=== PATIENT | male | born 1945 | race Caucasian/White ===

== ENCOUNTER 2019-05-15 04:01 | Outpatient (CLI) | payer MEDICARE, MEDICAID | END 2019-05-15 23:59 | disposition home or self-care (01) | LOC: DIABETIC 04:01 | PROVIDERS: ATTEND Specialist | DX: E11.69 Type 2 diabetes mellitus with other specified complication (principal) | CPT/HCPCS: G0108 ==

== ENCOUNTER 2019-10-26 09:10 | Observation (INO) | payer MEDICARE, MEDICAID ==
[2019-10-24 14:15] VITALS: BP 153/68
[~2019-10-26] VITALS: Ht 182.9 cm; Wt 95.1 kg
[2019-10-26] VITALS (11 sets, daily range): BP systolic 113–192; BP diastolic 61–90
[~2019-10-26 09:10] MED LIST: ALBU2.5V10 INH; ALLO300T2 PO; ASPI-611 PO; ATEN50TA PO; ATOR-2 PO; CLOP75TA15 PO; COLC0.6T69 PO; DABI150C PO; INSU100V9 SQ; ISOS30TA6 PO; LEVO200T8 PO; LISI-600 PO; METF1000 PO; TEST75GE TOP; TIOT4MIS5 INH
[2019-10-26] MEDS ORDERED: diphenhydrAMINE 25mg capsule PO PRN (09:35)
[2019-10-26] MEDS ORDERED: normal saline 1,000 ML IV SCH (09:35)
[2019-10-26] MEDS ORDERED: LORazepam 0.5 MG tablet PO PRN (09:35)
[2019-10-26] MEDS ORDERED: CLOP75TA15 PO (09:55)
[2019-10-26] MEDS ORDERED: METF-438 PO (09:55)
[2019-10-26] MEDS ORDERED: DABI75CA3 PO (09:55)
[2019-10-26] MEDS ORDERED: ATOR80TA PO (09:55)
[2019-10-26 10:31] LABS: BASOPHILS # (AUTO) 0.1 X10'3 (0-0.2); BASOPHILS % (AUTO) 1.2 % (0-1); EOSINOPHILS # (AUTO) 0.3 X10'3 (0-0.9); EOSINOPHILS % (AUTO) 5.8 % (0-6); HEMATOCRIT 40.6 % (42.0-52.0); HEMOGLOBIN 13.7 g/dl (14.0-17.9); LYMPHOCYTES # (AUTO) 1.4 X10'3 (1.1-4.8); LYMPHOCYTES % (AUTO) 22.8 % (21-51); MEAN CORPUSCULAR HEMOGLOBIN 30.4 PG (27.0-31.0); MEAN CORPUSCULAR HGB CONC 33.7 g/dL (33.0-36.5); MEAN CORPUSCULAR VOLUME 90.2 FL (78-98); MEAN PLATELET VOLUME 8.7 FL (7.4-10.4); MONOCYTES # (AUTO) 0.6 X10'3 (0-0.9); MONOCYTES % (AUTO) 9.7 % (2-12); NEUTROPHILS # (AUTO) 3.6 X10'3 (1.8-7.7); NEUTROPHILS % (AUTO) 60.5 % (42-75); PLATELET COUNT 193 X10'3 (140-440); WHITE BLOOD COUNT 5.9 X10'3 (4.5-11.0)
[2019-10-26 10:41] LABS: ALBUMIN 3.3 G/DL (3.4-5.0); ANION GAP 9 (8-16); BLOOD UREA NITROGEN 11 MG/DL (7-18); BUN/CREATININE RATIO 10.3 (5.4-32.0); CALCIUM 9.2 MG/DL (8.5-10.1); CHLORIDE 105 MMOL/L (99-107); CREATININE 1.07 MG/DL (0.60-1.10); GLUCOSE 130 MG/DL (70-104); POTASSIUM 3.9 MMOL/L (3.5-5.1); SODIUM 140 MMOL/L (135-145); TOTAL CARBON DIOXIDE 25.9 MMOL/L (24-32); eGFR 67 ML/MIN
[2019-10-26 10:44] LABS: PARTIAL THROMBOPLASTIN TIME 30 SECONDS (22-32)
[2019-10-26] MEDS ORDERED: fentaNYL/PF 50MCG/1 ML 2ML syringe ONE (11:13)
[2019-10-26] MEDS ORDERED: midazolam 2 mg/2 ml injection ONE (11:13)
[2019-10-26] MEDS ORDERED: verapamil 2.5 mg/ml inj IV ONE (11:13)
[2019-10-26] MEDS ORDERED: heparin 1,000unit/ml 10ml vial 10 ML ONE ×2 (11:14→13:07)
[2019-10-26] MEDS ORDERED: nitroGLYCERIN-Tridil 50MG/D5W 250 ML IV ONE (11:14)
[2019-10-26] MEDS ORDERED: iohexol 350 MG/1 ML 200ml bottle ONE (11:14)
[2019-10-26] MEDS ORDERED: LIDOcaine 1% (10mg/ml)w/preservative injection 20ml MDV ONE (11:14)
[2019-10-26] MEDS ORDERED: heparin 1,000 UNITS/NS 500ml 500 ML ONE (12:13)
[2019-10-26] MEDS ORDERED: iohexol 350MG/ML 100ml bottle IV ONE ×2 (13:08→13:34)
[2019-10-26] MEDS ORDERED: clopidogrel 300mg tablet ONE (13:58)
[2019-10-26] MEDS ORDERED: heparin 25,000 UNIT/250ml bag 250 ML IV ONE (14:04)
--- NOTE | 2019-10-26 14:15 | NUR ---
Angioseal inplace, hematoma developed, pressure held by kay Holliday from entry level lab technician. edges marked. will continue to monitor Addendum: 10/26/19 at 1830 by Luly Zamora RN Correction time of angioseal placement was 1615 not 1830
--- NOTE | 2019-10-26 14:15 | NUR ---
plavix given at bedside by photonic laboratory technician nurse TERRA Mathews
--- NOTE | 2019-10-26 14:20 | NUR ---
Hematoma to rt groin has increased in size. pressure held for 15 min. MD Sage at bedside. New orders given, femstop ordered. Addendum: 10/26/19 at 1833 by Luly Zamora RN Correction above note is incorrectly timed. Event was 1620 not 183
--- NOTE | 2019-10-26 14:51 | NUR ---
paged waiting for call back
[2019-10-26] MEDS ORDERED: CLOPIDOGREL BISULFATE 300MG TAB PO ONE (14:55)
[2019-10-26] MEDS ORDERED: OXAZEpam 15mg capsule PO PRN (15:00)
[2019-10-26] MEDS ORDERED: acetaminophen 325mg tablet PO PRN (15:00)
[2019-10-26] MEDS ORDERED: proCHLORperazine 10 MG/2 ml inj IV PRN (15:00)
[2019-10-26] MEDS ORDERED: HYDROcodone/acetaminophen 10/325mg tab PO PRN ×2 (15:00)
[2019-10-26] MEDS ORDERED: magnesium hydroxide 30ml (MOM) UD suspension PO PRN (15:00)
[2019-10-26] MEDS ORDERED: aspirin 81mg tab.chew PO NR (15:00)
[2019-10-26] MEDS ORDERED: cyclobenzaprine 10mg tablet PO PRN (15:00)
--- NOTE | 2019-10-26 15:00 | NUR ---
Reported change on EKG. New medications ordered.
[2019-10-26] MEDS ORDERED: potassium Cl 20 mEq SR tablet PO STA (15:01)
[2019-10-26] MEDS ORDERED: magnesium 2GM in 50ml NS 50 ML IV ONE (15:05)
--- NOTE | 2019-10-26 18:05 | NUR ---
Problems reprioritized. Patient report given, questions answered & plan of care reviewed with TERRA Hernandez.
[2019-10-26] MEDS ORDERED: ipratropium 0.5 MG/2.5ML nebule IH PRN (18:50)
--- NOTE | 2019-10-26 19:30 | NUR ---
Problems reprioritized. Patient report given, questions answered & plan of care reviewed with TERRA Babin, pt's VSS, pt is in stable condition, pt will be transferred to Room#309.
[2019-10-26] MEDS ORDERED: docusate sod 100mg capsule PO SCH (20:00)
[2019-10-26] MEDS ORDERED: atorvastatin 20mg tablet PO SCH (21:00)
[2019-10-26] MEDS ORDERED: insulin glargine (Lantus) pen - multi-dose SQ SCH (21:00)
[2019-10-26] MEDS: normal saline 1,000 ML IV SCH (22:32)
[2019-10-27] MEDS: normal saline 1,000 ML IV SCH (01:00)
[2019-10-27 02:47] LABS: BASOPHILS # (AUTO) 0.1 X10'3 (0-0.2); BASOPHILS % (AUTO) 0.7 % (0-1); EOSINOPHILS # (AUTO) 0.4 X10'3 (0-0.9); EOSINOPHILS % (AUTO) 3.8 % (0-6); HEMATOCRIT 37.1 % (42.0-52.0); HEMOGLOBIN 12.6 g/dl (14.0-17.9); LYMPHOCYTES # (AUTO) 1.6 X10'3 (1.1-4.8); LYMPHOCYTES % (AUTO) 16.9 % (21-51); MEAN CORPUSCULAR HEMOGLOBIN 30.4 PG (27.0-31.0); MEAN CORPUSCULAR HGB CONC 33.9 g/dL (33.0-36.5); MEAN CORPUSCULAR VOLUME 89.7 FL (78-98); MEAN PLATELET VOLUME 8.9 FL (7.4-10.4); MONOCYTES # (AUTO) 0.8 X10'3 (0-0.9); MONOCYTES % (AUTO) 8.9 % (2-12); NEUTROPHILS # (AUTO) 6.6 X10'3 (1.8-7.7); NEUTROPHILS % (AUTO) 69.7 % (42-75); PLATELET COUNT 193 X10'3 (140-440); RED BLOOD COUNT 4.14 X10'6 (4.70-6.10); RED CELL DISTRIBUTION WIDTH 17.1 % (11.5-14.5); WHITE BLOOD COUNT 9.5 X10'3 (4.5-11.0)
[2019-10-27 02:55] LABS: ALBUMIN 3.2 G/DL (3.4-5.0); ANION GAP 6 (8-16); BLOOD UREA NITROGEN 12 MG/DL (7-18); BUN/CREATININE RATIO 11.2 (5.4-32.0); CALCIUM 8.9 MG/DL (8.5-10.1); CHLORIDE 106 MMOL/L (99-107); CHOLESTEROL 103 MG/DL (0-200); CREATININE 1.07 MG/DL (0.60-1.10); GLUCOSE 110 MG/DL (70-104); HDL CHOLESTEROL 34 MG/DL (35-60); LDL CHOLESTEROL 54 MG/DL (50-100); SODIUM 139 MMOL/L (135-145); TOTAL CARBON DIOXIDE 26.8 MMOL/L (24-32); TRIGLYCERIDES 85 MG/DL (20-135); eGFR 67 ML/MIN
[2019-10-27 03:06] VITALS: BP 171/102
--- NOTE | 2019-10-27 03:07 | NUR ---
pt hypertensive 171/102. pt irritable. r/t hospital policy of skin check. pt pulled out IV, refuse recheck BP. pt sitting at edge of bed, getting dressed refuse assistance. call staff Foul language. RN and charge educated pt regarding fall precaution, AMA. pt non redirectable at present.
--- NOTE | 2019-10-27 03:10 | NUR ---
Pt requested to speak with charge coordinator at this time. He expressed frustration with the 2 RN skin check performed. At time of the skin check 10/26/19 @ 2300, patient did not refuse the skin check and what we would be doing was explained to him. Explained to patient that the 2 RN skin check is a policy in our hospital as we are looking for any wounds/sores or areas of potential breakdown. Pt said he has had it with this place and he would be leaving even if he "had to walk home to [place]". At this time I educated him regarding AMA and signing the paper if he would be leaving. Patient said he wasn't signing any paper and requested all lines and wires to be d/c'd. I asked patient if he would be willing to wait until Dr. Sage rounded to d/c. Patient said he wanted to get dressed, call his and he would wait for [address] Sage to round. Patient removed his own IV. I left the room, the patient closed the door to get dressed.
--- NOTE | 2019-10-27 03:20 | NUR ---
I was in a patient's room when his door opened and patient, fully dressed, walked out and off the unit. Security called. I went to the lobby to check and see if patient was leaving. He was at the exit walking out. He said he called his and would wait outside for her to come. Security arrived. Patient adamant about leaving, said he couldn't stay any longer. Still refusing to sign AMA. Didn't understand why the hospital would do a 2 RN skin check and said he had never had one done anytime he stayed here. Explained our hospital's policy/procedure. Said he would call Dr. Sage's office later this morning. Patient said he had all of his belongings with him. Didn't want us to check on any discharge medications. ID band taken off. Primary RN notified Nursing Sup and Dr. Sage.
[2019-10-27] MEDS ORDERED: levoTHYROXINE 100mcg tablet PO SCH (08:00)
[2019-10-27] MEDS ORDERED: atenolol 50mg tablet PO SCH (08:00)
[2019-10-27] MEDS ORDERED: colchicine 0.6mg tablet PO SCH (08:00)
[2019-10-27] MEDS ORDERED: non-formulary drug (Aspirin (Aspir 81) 1 TAB) PO SCH (08:00)
[2019-10-27] MEDS ORDERED: lisinopril 20mg tablet PO SCH (08:00)
[2019-10-27] MEDS ORDERED: testosterone 5gm gel packet TD SCH (08:00)
[2019-10-27] MEDS ORDERED: isosorbide mononitrate 30mg tab.SR.24H PO SCH (08:00)
[2019-10-27] MEDS ORDERED: clopidogrel 75mg tablet PO SCH ×2 (08:00)
[2019-10-27] MEDS ORDERED: allopurinol 300 MG tablet PO SCH (08:00)
[2019-10-27] MEDS ORDERED: aspirin 325mg tablet PO SCH (08:30)
[2019-10-28] MEDS ORDERED: metFORMIN 500mg tablet PO SCH (20:00)
== END 2019-10-27 03:20 | disposition left against medical advice (07) ==
LOC: SSTAY O 09:10 → ED HOLD 18:06 → MED 3N 20:51
PROVIDERS: ADMIT Internal Medicine Cardiovascular Disease; ATTEND Internal Medicine Cardiovascular Disease
DX: I25.10 Atherosclerotic heart disease of native coronary artery without angina pectoris (principal); I10 Essential (primary) hypertension; E78.5 Hyperlipidemia, unspecified; E11.9 Type 2 diabetes mellitus without complications; J44.9 Chronic obstructive pulmonary disease, unspecified; F17.200 Nicotine dependence, unspecified, uncomplicated; Z95.1 Presence of aortocoronary bypass graft; Z79.899 Other long term (current) drug therapy
CPT/HCPCS: 33210; 36415; 80048; 80061; 82948; 85025; 85347; 85610; 85730; 93005; 94760; 96365; 96366; 96372; C1725; C1756; C1769; C1874; C9602; G0378; J1644; J2001; J2250; J3010; J3475; J7030; J7040; Q0163; Q9967; 99152; 99153; A4620; A6258; A6449; C1760; J1815; J3490

== ENCOUNTER 2021-11-06 14:21 | Outpatient (CLI) | payer MEDICARE, MEDICAID ==
[~2021-11-06 14:21] MED LIST changes: -ALBU2.5V10 INH; -ATOR-2 PO; +ATOR80TA PO; -COLC0.6T69 PO; +COLC0.6T72 PO; -DABI150C PO; +DABI75CA3 PO; -ISOS30TA6 PO; +ISOS30TA84 PO; -LISI-600 PO; +LISI20TA28 PO; +METF-438 PO; -METF1000 PO
[2021-11-06 14:57] LABS: ABG BASE EXCESS -0.6 mmol/L (-2.0-2.0); ABG HCO3 22.7 mmol/L (22.0-26.0); ABG OXYGEN SATURATION 96.3 % (94-97); ABG PCO2 (T) 33.8 mmHg (35.0-48.0); ABG PO2 (T) 83.3 mmHg (75.0-100.0); ALLEN'S TEST POSITIVE; FCOHb 0.9 % (0.0-3.9); FO2Hb 95.4 % (94-97); TOTAL HEMOGLOBIN 14.8 G/dl (14.0-18.0)
== END 2021-11-06 23:59 | disposition home or self-care (01) ==
LOC: LAB 14:21
PROVIDERS: ATTEND Physician Assistant
DX: J44.9 Chronic obstructive pulmonary disease, unspecified (principal)
CPT/HCPCS: 36600; 82803; 85018

== ENCOUNTER 2024-07-17 17:29 | Inpatient (IN) | payer MEDICARE, MEDICAID ==
[~2024-07-17] VITALS: Ht 182.9 cm; Wt 93.2 kg
[2024-07-17 18:15] LABS: BASOPHILS # (AUTO) 0.1 X10'3 (0-0.2); BASOPHILS % (AUTO) 0.8 % (0-1); EOSINOPHILS # (AUTO) 0.3 X10'3 (0-0.9); EOSINOPHILS % (AUTO) 2.4 % (0-6); HEMATOCRIT 41.7 % (42.0-52.0); HEMOGLOBIN 14.4 g/dl (14.0-17.9); LYMPHOCYTES # (AUTO) 1.5 X10'3 (1.1-4.8); LYMPHOCYTES % (AUTO) 14.4 % (21-51); MEAN CORPUSCULAR HEMOGLOBIN 32.1 PG (27.0-31.0); MEAN CORPUSCULAR HGB CONC 34.5 g/dL (33.0-36.5); MEAN CORPUSCULAR VOLUME 93.2 FL (78-98); MEAN PLATELET VOLUME 8.7 FL (7.4-10.4); MONOCYTES # (AUTO) 0.7 X10'3 (0-0.9); MONOCYTES % (AUTO) 6.4 % (2-12); PLATELET COUNT 190 X10'3 (140-440); RED BLOOD COUNT 4.47 X10'6 (4.70-6.10); RED CELL DISTRIBUTION WIDTH 16.3 % (11.5-14.5); WHITE BLOOD COUNT 10.5 X10'3 (4.5-11.0)
[2024-07-17] MEDS: normal saline 1000ml 1,000 ML IV ONE (18:21)
[2024-07-17 18:31] LABS: ALANINE AMINOTRANSFERASE 11 U/L (12-78); ALBUMIN 3.4 G/DL (3.4-5.0); ALBUMIN/GLOBULIN RATIO 0.9 (1.1-1.5); ALKALINE PHOSPHATASE 84 IU/L (46-116); ANION GAP 11 (8-16); ASPARTATE AMINO TRANSFERASE 10 U/L (10-37); BILIRUBIN,TOTAL 1.3 MG/DL (0.1-1.0); BLOOD UREA NITROGEN 11 MG/DL (7-18); BUN/CREATININE RATIO 8.3 (10.0-20.0); CALCIUM 9.2 MG/DL (8.5-10.1); CHLORIDE 102 MMOL/L (99-107); CREATININE 1.33 MG/DL (0.60-1.10); GLUCOSE 187 MG/DL (70-104); POTASSIUM 3.3 MMOL/L (3.5-5.1); SODIUM 138 MMOL/L (135-145); TOTAL CARBON DIOXIDE 24.6 MMOL/L (24-32); TOTAL PROTEIN 7.1 G/DL (6.4-8.2); eCRCL 49 ML/MIN; eGFR 52 ML/MIN
[2024-07-17 18:41] LABS: PRO BRAIN NATRIURETIC PEPTIDE 2441 PG/ML (0-450)
[2024-07-17] MEDS ORDERED: acetaminophen 325mg tablet PO PRN (21:25)
[2024-07-17] MEDS ORDERED: potassium Cl 20 mEq SR tablet PO PRN (21:25)
[2024-07-17] MEDS ORDERED: ondansetron/PF 4mg/2ml inj IV PRN (21:25)
[2024-07-17] MEDS ORDERED: mag hydrox/Alum hydrox/simeth 30ml oral suspension PO PRN (21:25)
[2024-07-17] MEDS ORDERED: magnesium hydroxide 30ml (MOM) UD suspension PO PRN (21:25)
[2024-07-17] MEDS ORDERED: magnesium sulf-water 4G/100mL 100 ML IV PRN (21:25)
[2024-07-17] MEDS ORDERED: potassium Cl 40MEQ/1/2NS 520ml 520 ML IV PRN (21:25)
[2024-07-17] MEDS ORDERED: magnesium Cl slow-release 64mg tablet PO PRN (21:25)
[2024-07-17] MEDS ORDERED: magnesium sulf-water 2g/50mL 50 ML IV PRN (21:25)
[2024-07-17] MEDS ORDERED: DEXTROSE 15 GM of carb/4 tabs (each vial/BOTTLE has 4 tablets) PO PRN ×2 (21:30)
[2024-07-17] MEDS ORDERED: glucagon, human recombinant 1mg kit SUBCUT PRN (21:30)
[2024-07-17] MEDS ORDERED: dextrose 50%-water 50ml dispensing syringe IV PRN ×2 (21:30)
[2024-07-17 21:52] LABS: HEMOGLOBIN A1C 6.7 % (4.5-6.2)
[2024-07-17] MEDS: potassium Cl 20 mEq SR tablet PO PRN (21:56)
[2024-07-17] MEDS: normal saline 1000ml 1,000 ML IV SCH (21:57)
[2024-07-17 22:47] LABS: THYROID STIMULATING HORMONE 94.12 ulU/ml (0.34-4.50)
[2024-07-17] MEDS ORDERED: ipratropium/albuterol 3ml nebule NEB SCH (23:00)
[2024-07-17 23:35] VITALS: PULSE 67; RESP 16; O2SAT 96
[2024-07-18] MEDS ORDERED: ipratropium/albuterol 3ml nebule NEB PRN
[2024-07-18 02:38] LABS: URINE AMPHETAMINE SCREEN NEGATIVE (Neg); URINE BARBITUATE SCREEN NEGATIVE (Neg); URINE BENZODIAZEPINES SCREEN NEGATIVE (Neg); URINE COCAINE SCREEN NEGATIVE (Neg); URINE METHADONE SCREEN NEGATIVE (Neg); URINE PHENCYCLIDINE SCREEN NEGATIVE (Neg)
[2024-07-18 02:39] LABS: URINE CANNABINOID SCREEN NEGATIVE (Neg); URINE OPIATE SCREEN NEGATIVE (Neg)
[2024-07-18 02:59] LABS: BASOPHILS # (AUTO) 0.1 X10'3 (0-0.2); EOSINOPHILS # (AUTO) 0.3 X10'3 (0-0.9); EOSINOPHILS % (AUTO) 3.9 % (0-6); HEMATOCRIT 37.3 % (42.0-52.0); HEMOGLOBIN 12.5 g/dl (14.0-17.9); LYMPHOCYTES # (AUTO) 1.5 X10'3 (1.1-4.8); LYMPHOCYTES % (AUTO) 21.5 % (21-51); MEAN CORPUSCULAR HEMOGLOBIN 31.1 PG (27.0-31.0); MEAN CORPUSCULAR HGB CONC 33.5 g/dL (33.0-36.5); MEAN CORPUSCULAR VOLUME 92.8 FL (78-98); MEAN PLATELET VOLUME 8.3 FL (7.4-10.4); MONOCYTES # (AUTO) 0.5 X10'3 (0-0.9); MONOCYTES % (AUTO) 7.7 % (2-12); NEUTROPHILS # (AUTO) 4.5 X10'3 (1.8-7.7); NEUTROPHILS % (AUTO) 65.9 % (42-75); PLATELET COUNT 196 X10'3 (140-440); RED BLOOD COUNT 4.02 X10'6 (4.70-6.10); RED CELL DISTRIBUTION WIDTH 15.9 % (11.5-14.5); WHITE BLOOD COUNT 6.8 X10'3 (4.5-11.0)
[2024-07-18 03:25] LABS: ALANINE AMINOTRANSFERASE 10 U/L (12-78); ALBUMIN 2.9 G/DL (3.4-5.0); ALBUMIN/GLOBULIN RATIO 0.8 (1.1-1.5); ALKALINE PHOSPHATASE 71 IU/L (46-116); ANION GAP 4 (8-16); ASPARTATE AMINO TRANSFERASE 14 U/L (10-37); BLOOD UREA NITROGEN 10 MG/DL (7-18); BUN/CREATININE RATIO 7.4 (10.0-20.0); CALCIUM 8.2 MG/DL (8.5-10.1); CHLORIDE 105 MMOL/L (99-107); CREATININE 1.35 MG/DL (0.60-1.10); GLUCOSE 119 MG/DL (70-104); MAGNESIUM 1.6 MG/DL (1.5-2.4); POTASSIUM 3.4 MMOL/L (3.5-5.1); SODIUM 138 MMOL/L (135-145); TOTAL CARBON DIOXIDE 28.9 MMOL/L (24-32); TOTAL PROTEIN 6.4 G/DL (6.4-8.2); eCRCL 48 ML/MIN; eGFR 51 ML/MIN
[2024-07-18 05:35] VITALS: PULSE 61
[2024-07-18 05:58] VITALS: BP 166/78; RESP 16; TEMP 97.4; O2SAT 99
[2024-07-18] MEDS ORDERED: INSULIN LISPRO 100 UNIT/ML INSULN.PEN MULTI-DOSE SQ SCH ×2 (07:00→09:00)
[2024-07-18] MEDS ORDERED: K and/or MAG REPLACEMENT MC SCH (08:00)
[2024-07-18] MEDS ORDERED: apixaban 2.5mg tablet PO SCH (08:00)
[2024-07-18] MEDS ORDERED: docusate sod 100mg capsule PO SCH (08:00)
== END 2024-07-18 05:58 | disposition left against medical advice (07) | DRG 312 ==
LOC: ER 17:29 → ED HOLD 19:30
PROVIDERS: ADMIT Student in an Organized Health Care Education/Training Program; ATTEND Student in an Organized Health Care Education/Training Program
DX: I95.1 Orthostatic hypotension (principal); I48.91 Unspecified atrial fibrillation; E11.9 Type 2 diabetes mellitus without complications; E78.5 Hyperlipidemia, unspecified; E03.9 Hypothyroidism, unspecified; J44.9 Chronic obstructive pulmonary disease, unspecified; M10.9 Gout, unspecified; I10 Essential (primary) hypertension; I25.10 Atherosclerotic heart disease of native coronary artery without angina pectoris; Z53.29 Procedure and treatment not carried out because of patient's decision for other reasons; Z88.8 Allergy status to other drugs, medicaments and biological substances
CPT/HCPCS: 36415; 71045; 80053; 80305; 83036; 83605; 83735; 83880; 84145; 84443; 84484; 85025; 87040; 93005; 94760; 99285; G0378; J1815; J7030

== ENCOUNTER 2024-10-07 07:10 | Observation (INO) | payer MEDICARE, MEDICAID ==
[2024-10-06 11:37] LABS: BASOPHILS # (AUTO) 0.1 X10'3 (0-0.2); BASOPHILS % (AUTO) 1.1 % (0-1); EOSINOPHILS # (AUTO) 0.3 X10'3 (0-0.9); EOSINOPHILS % (AUTO) 4.2 % (0-6); HEMATOCRIT 42.8 % (42.0-52.0); HEMOGLOBIN 14.8 g/dl (14.0-17.9); LYMPHOCYTES # (AUTO) 1.6 X10'3 (1.1-4.8); LYMPHOCYTES % (AUTO) 19.6 % (21-51); MEAN CORPUSCULAR HEMOGLOBIN 32.8 PG (27.0-31.0); MEAN CORPUSCULAR HGB CONC 34.6 g/dL (33.0-36.5); MEAN CORPUSCULAR VOLUME 94.9 FL (78-98); MEAN PLATELET VOLUME 8.1 FL (7.4-10.4); MONOCYTES # (AUTO) 0.7 X10'3 (0-0.9); MONOCYTES % (AUTO) 7.9 % (2-12); NEUTROPHILS # (AUTO) 5.6 X10'3 (1.8-7.7); NEUTROPHILS % (AUTO) 67.2 % (42-75); PLATELET COUNT 209 X10'3 (140-440); RED BLOOD COUNT 4.51 X10'6 (4.70-6.10); RED CELL DISTRIBUTION WIDTH 15.4 % (11.5-14.5); WHITE BLOOD COUNT 8.4 X10'3 (4.5-11.0)
[2024-10-06 11:55] LABS: APTT 28 SECONDS (22-32); PROTHROMBIN TIME 10.9 SECONDS (9.0-12.0)
[2024-10-06 12:08] LABS: ALBUMIN 3.6 G/DL (3.4-5.0); ANION GAP 9 (8-16); BLOOD UREA NITROGEN 10 MG/DL (7-18); BUN/CREATININE RATIO 6.4 (10.0-20.0); CALCIUM 8.9 MG/DL (8.5-10.1); CHLORIDE 100 MMOL/L (99-107); CREATININE 1.56 MG/DL (0.60-1.10); GLUCOSE 148 MG/DL (70-104); POTASSIUM 3.4 MMOL/L (3.5-5.1); SODIUM 139 MMOL/L (135-145); TOTAL CARBON DIOXIDE 30.5 MMOL/L (24-32); eGFR 43 ML/MIN
[~2024-10-07] VITALS: Ht 185.4 cm; Wt 102.6 kg
[2024-10-07] VITALS (15 sets, daily range): BP systolic 95–180; BP diastolic 46–118; PULSE 41–69; RESP 12–15; TEMP 98.2; O2SAT 94–99
[~2024-10-07 07:10] MED LIST changes: +ATOR-429 PO; -ATOR80TA PO
[2024-10-07] MEDS ORDERED: ATOR20TA66 PO (07:34)
[2024-10-07] MEDS ORDERED: LEVO75TA7 PO (07:36)
[2024-10-07] MEDS ORDERED: LISI40TA13 PO (07:37)
[2024-10-07] MEDS: diphenhydrAMINE 25mg capsule PO PRN (08:22)
[2024-10-07] MEDS: normal saline 1,000 ML IV SCH (08:22)
[2024-10-07] MEDS: LORazepam 0.5 MG tablet PO PRN (08:22)
[2024-10-07] MEDS ORDERED: heparin 1,000unit/ml 10ml vial 10 ML ONE (08:39)
[2024-10-07] MEDS ORDERED: fentaNYL/PF 50MCG/1 ML 2ML syringe ONE (08:39)
[2024-10-07] MEDS ORDERED: midazolam 1 mg/ML 2ml injection ONE (08:39)
[2024-10-07] MEDS ORDERED: LIDOcaine 1% 30ml preserv. free vial ONE (08:39)
[2024-10-07] MEDS ORDERED: iohexol 350 MG/ML 50ML vial IV ONE (08:39)
[2024-10-07] MEDS ORDERED: iohexol 350MG/ML 100ml bottle IV ONE ×2 (08:39→11:02)
[2024-10-07] MEDS ORDERED: nitroGLYCERIN 500mcg/5mL D5W 5 ML IV ONE (08:40)
[2024-10-07] MEDS: potassium Cl 20 mEq SR tablet PO STA (08:54)
[2024-10-07] MEDS: sodium bicarbonate 1meq/ml syr 150 ML in dextrose 5%-water 1,000 ML IV ONE (08:56)
[2024-10-07] MEDS ORDERED: LIDOcaine 1% (10mg/ml) 2ml vial ONE (09:49)
[2024-10-07] MEDS ORDERED: verapamil 2.5 mg/ml inj IV ONE (09:49)
[2024-10-07] MEDS: isosorbide mononitrate 30mg tab.SR.24H PO ONE (10:00)
[2024-10-07] MEDS: atenolol 50mg tablet PO ONE (10:12)
[2024-10-07] MEDS ORDERED: hydrALAZINE 20mg/ml inj. ONE ×2 (11:06→11:39)
[2024-10-07] MEDS ORDERED: HYDROcodone/acetaminophen 10/325mg tab PO PRN (12:20)
[2024-10-07] MEDS ORDERED: HYDROcodone/acetaminophen 5mg/325mg tablet PO PRN (12:20)
[2024-10-07] MEDS ORDERED: atropine 1 MG/1 ML vial IV ONE (12:35)
[2024-10-07] MEDS: atropine 0.1mg/ml 10ml syringe ONE (12:42)
[2024-10-07] MEDS: acetylcysteine 200 MG/ml 4ml vial PO PRN (12:44)
[2024-10-07] MEDS: albuterol 2.5 MG/3 ML nebule NEB PRN (15:23)
[2024-10-07] MEDS: acetylcysteine 200 MG/ml 4ml vial PO SCH (20:00)
[2024-10-07] MEDS: LORazepam 2 mg/ml vial IM ONE (22:47)
[2024-10-07] MEDS: LORazepam 2 mg/ml vial IV ONE (22:50)
[2024-10-08 06:00] VITALS: BP 121/65; PULSE 40; RESP 14; TEMP 97.1; O2SAT 96
[2024-10-08 08:55] VITALS: RESP 14; O2SAT 96
[2024-10-08 09:56] LABS: BASOPHILS # (AUTO) 0.1 X10'3 (0-0.2); BASOPHILS % (AUTO) 0.8 % (0-1); EOSINOPHILS # (AUTO) 0.3 X10'3 (0-0.9); EOSINOPHILS % (AUTO) 3.5 % (0-6); HEMATOCRIT 40.6 % (42.0-52.0); LYMPHOCYTES # (AUTO) 1.7 X10'3 (1.1-4.8); LYMPHOCYTES % (AUTO) 20.6 % (21-51); MEAN CORPUSCULAR HEMOGLOBIN 32.5 PG (27.0-31.0); MEAN CORPUSCULAR HGB CONC 34.4 g/dL (33.0-36.5); MEAN CORPUSCULAR VOLUME 94.6 FL (78-98); MEAN PLATELET VOLUME 8.6 FL (7.4-10.4); MONOCYTES # (AUTO) 0.6 X10'3 (0-0.9); MONOCYTES % (AUTO) 7.6 % (2-12); NEUTROPHILS # (AUTO) 5.5 X10'3 (1.8-7.7); NEUTROPHILS % (AUTO) 67.5 % (42-75); PLATELET COUNT 205 X10'3 (140-440); RED BLOOD COUNT 4.29 X10'6 (4.70-6.10); RED CELL DISTRIBUTION WIDTH 15.4 % (11.5-14.5); WHITE BLOOD COUNT 8.2 X10'3 (4.5-11.0)
[2024-10-08 10:26] LABS: ALBUMIN 3.3 G/DL (3.4-5.0); ANION GAP 7 (8-16); BLOOD UREA NITROGEN 9 MG/DL (7-18); CHLORIDE 101 MMOL/L (99-107); CREATININE 1.29 MG/DL (0.60-1.10); GLUCOSE 117 MG/DL (70-104); POTASSIUM 3.5 MMOL/L (3.5-5.1); PRO BRAIN NATRIURETIC PEPTIDE 2769 PG/ML (0-450); SODIUM 138 MMOL/L (135-145); TOTAL CARBON DIOXIDE 30.1 MMOL/L (24-32); eCRCL 52 ML/MIN; eGFR 54 ML/MIN
[2024-10-08 11:00] VITALS: BP 158/74; PULSE 47; RESP 15; TEMP 97.9; O2SAT 94
[2024-10-08] MEDS: FLU VACC TS2024-25(6MOS UP)/PF 45 MCG/0.5 ML SYRINGE IMVAC ONE (11:33)
== END 2024-10-08 12:55 | disposition home or self-care (01) ==
LOC: SSTAY O 07:10 → PCU 3S 18:16
PROVIDERS: ADMIT Internal Medicine Cardiovascular Disease; ATTEND Internal Medicine Cardiovascular Disease
DX: I25.10 Atherosclerotic heart disease of native coronary artery without angina pectoris (principal); I10 Essential (primary) hypertension; E11.9 Type 2 diabetes mellitus without complications; E78.5 Hyperlipidemia, unspecified; J44.9 Chronic obstructive pulmonary disease, unspecified; I48.91 Unspecified atrial fibrillation; Z95.1 Presence of aortocoronary bypass graft; Z79.899 Other long term (current) drug therapy
CPT/HCPCS: 80048; 82948; 83880; 84132; 85610; 85730; 90686; 93005; 93459; 94640; 94760; 96365; 96366; 96372; A4615; A4620; C1725; C1760; G0378; J3490; Q0163; Q9967; 36415; 76937; 85025; 99152; 99153; A6258; J0360; J0461; J1644; J2003; J2060; J2250; J3010; J7030; J7070

== ENCOUNTER 2024-10-29 08:53 | Emergency (ER) | payer MEDICARE, MEDICAID ==
[~2024-10-29] VITALS: Ht 185.4 cm; Wt 95.5 kg
[~2024-10-29 08:53] MED LIST changes: -ATOR-429 PO; +ATOR20TA66 PO; -LEVO200T8 PO; +LEVO75TA7 PO; -LISI20TA28 PO; +LISI40TA13 PO; -TEST75GE TOP
[2024-10-29] MEDS: HYDROcodone/acetaminophen 5mg/325mg tablet PO ONE (10:16)
[2024-10-29] MEDS ORDERED: HYDR-3965 PO (10:53)
[2024-10-29 11:50] VITALS: BP 162/126; PULSE 64; RESP 18; TEMP 97.8; O2SAT 98
== END 2024-10-29 11:52 | disposition home or self-care (01) ==
LOC: ER 08:53
DX: S52.502A Unspecified fracture of the lower end of left radius, initial encounter for closed fracture (principal); Z88.8 Allergy status to other drugs, medicaments and biological substances; Z79.82 Long term (current) use of aspirin; W19.XXXA Unspecified fall, initial encounter; Y93.89 Activity, other specified; Y92.89 Other specified places as the place of occurrence of the external cause; Y99.8 Other external cause status
CPT/HCPCS: 29125; 70450; 73110; 82948; 99284; A4565; A6449; L3908; 99291

== ENCOUNTER 2025-03-01 11:06 | Inpatient (IN) | payer MEDICARE, MEDICAID ==
[~2025-03-01] VITALS: Ht 188 cm; Wt 80.9 kg
--- NOTE | 2025-03-01 11:16 | ELECTROCARDIOGRAPH REPORT ---
[facility] Test Date: 2025-03-01 Test Time: 11:13:57 Pat Name: KAMALJIT KHAN Department: EMERGENCY ROOM Room: ED 3 Gender: M Sand Caster: : 1945 Requested By: DAVID WILLIAM Order Number: [id number] Reading MD: Dr. David William Measurements Intervals Transfer Rate: 36 P: 0 [place]: 0 QRS: 56 QRSD: 130 T: 262 QT: 531 QTc: 411 Interpretive Statements Atrial fibrillation Nonspecific intraventricular conduction delay Nonspecific repol abnormality, diffuse leads Electronically Signed On 03-01-2025 14:56:[address] David William Please click the below link to view image of tracing.
[2025-03-01 11:28] LABS: BASOPHILS # (AUTO) 0.1 X10'3 (0-0.2); BASOPHILS % (AUTO) 0.8 % (0-1); EOSINOPHILS # (AUTO) 0.2 X10'3 (0-0.9); HEMATOCRIT 32.8 % (42.0-52.0); HEMOGLOBIN 11.2 g/dl (14.0-17.9); LYMPHOCYTES # (AUTO) 1.3 X10'3 (1.1-4.8); LYMPHOCYTES % (AUTO) 16.2 % (21-51); MEAN CORPUSCULAR HEMOGLOBIN 31.7 PG (27.0-31.0); MEAN CORPUSCULAR HGB CONC 34.2 g/dL (33.0-36.5); MEAN CORPUSCULAR VOLUME 92.5 FL (78-98); MEAN PLATELET VOLUME 8.4 FL (7.4-10.4); MONOCYTES # (AUTO) 0.6 X10'3 (0-0.9); MONOCYTES % (AUTO) 8.1 % (2-12); NEUTROPHILS # (AUTO) 5.6 X10'3 (1.8-7.7); NEUTROPHILS % (AUTO) 71.9 % (42-75); PLATELET COUNT 151 X10'3 (140-440); RED BLOOD COUNT 3.55 X10'6 (4.70-6.10); RED CELL DISTRIBUTION WIDTH 14.7 % (11.5-14.5); WHITE BLOOD COUNT 7.7 X10'3 (4.5-11.0)
--- NOTE | 2025-03-01 11:36 | RADIOLOGY REPORT ---
EXAM: DI CHEST,SINGLE VIEW HISTORY: CP COMPARISON: DI CHEST,SINGLE VIEW on DOS: 07/17/24 TECHNIQUE: Portable upright AP view of the chest was performed. FINDINGS: No pneumothorax, new infiltrates, or pulmonary edema. There is stable left lung base scarring. The he art enlarged. Postoperative changes of median sternotomy are re-identified. Probable moderate to larg e hiatal hernia. There are multiple old left rib fractures. IMPRESSION: 1. Left lung base scarring without evidence of acute intrathoracic process. 2. Cardiomegaly and postoperative changes of the heart.
--- NOTE | 2025-03-01 11:36 | Physician Documentation ---
History of Present Illness ~ Chief Complaint: Syncope Stated Complaint: SYNCOPE Time Seen by MD: 11:19 OK to notify your PCP?: Yes Primary Medical Doctor: [facility] Source: patient, RN/MD, EMS, RN notes reviewed, EMS notes reviewed Mode of Arrival: EMS Exam Limitations: no limitations HPI 80 year old male, with history of coronary artery disease, CABGx5, angioplasty, hypertension, diabetes, and atrial fibrillation followed by Dr. Sage, brought to the ED via EMS from home after patient apparently had a syncopal e pisode while sitting on the toilet. reported to EMS that he was unconscious for approximately 5 minutes. Patient does not recall events and reports he thought he was getting ready to go to the store. Upon EMS arrival, patient's heart rate was in the 40s, blood pressure was 126/66, and blood sugar was 207. Patient states he took his morning medications and ate breakfast this morning. He denies any chest pain, shortness of breath, or palpitations. Medication Reconciliation Allergies: Coded Allergies: propoxyphene (Verified Allergy, Unknown, 07/17/24) Scheduled Allopurinol (Allopurinol), 1 TAB PO DAILY, (Reported) Aspirin (Aspir 81), 1 TAB PO DAILY, (Reported) Atenolol (Atenolol), 1 TAB PO DAILY, (Reported) Atorvastatin Calcium (Atorvastatin Calcium), 1 TAB PO DAILY, (Reported) Clopidogrel Bisulfate (Plavix), 75 MG PO DAILY, (Reported) Colchicine (Colchicine), 1 TAB PO DAILY, (Reported) Dabigatran Etexilate Mesylate (Pradaxa), 75 MG PO BID, (Reported) Insulin Glargine,Hum.rec.anlog (Lantus), 14 UNIT SQ HS, (Reported) Isosorbide Mononitrate (Isosorbide Mononitrate Er), 1 TAB PO DAILY, (Reported) Levothyroxine Sodium (Levothyroxine Sodium), 1 TAB PO QAM, (Reported) Lisinopril* (Lisinopril*), 1 TAB PO QAM, (Reported) Metformin HCl (Metformin HCl), 1 TAB PO Q12H, (Reported) Tiotropium Cru[place] (Spiriva Respimat), 2.5 MCG INH DAILY, (Reported) Past Medical History Past Medical History: Atrial Fibrillation, Coronary Artery Disease, Hypertension, Myocardial Infarction, Diabetes, Hypothyroidism Past Surgical History: noncontributory, angioplasty, coronary bypass surgery Smoking Status: Light Tobacco User (chew) Drug Use: none Lives In: Home Review of Systems All Other Systems at this time: Reviewed and Negative ROS As stated above in the HPI, otherwise all systems are reviewed and negative. Physical Exam Vital Signs: RN Vital Signs have been reviewed: Yes, Temperature: 97.8, Source: Oral, Heart Rate: 41, Respiratory Rate: 16, BP: 127/62, Pulse Oximetry: 95, Weight: 80.910 Oxygen Flow Rate: 0 Pulse Oximetry Reflects: adequate oxygenation Physical Exam General: The patient is well developed, well nourished, nontoxic appearing and is in no acute distress. Skin: [place], warm and dry with no rashes. HEENT: Head was normocephalic and atraumatic. Eyes - pupils equal, round, reactive to light and accommodation. Extraocular movements were intact. Conjunctivae were nonicteric. Neck: Supple and nontender. There was no jugular venous distention, lymphadenopathy, thyromegaly or masses. Chest: Clear to auscultation bilaterally without wheezes, rales or rhonchi. No accessory muscle use. No dullness to percussion. Heart: Irregularly irregular rhythm, bradycardic. S1, S2. No murmurs. Palpation of the chest wall was normal. No rubs or thrills. Abdomen: Soft, nontender and nondistended. Positive bowel sounds. No guarding or rebound. No hepatosplenomegaly or palpable masses. Extremities: No cyanosis, clubbing or edema. The patient moves all extremities. Pulses were equal and symmetric. Neurologic: Cranial nerves II-XII were grossly intact. Sensation was intact to light touch throughout. Moves all extremities equally. Psychologic: The patient was oriented to person, place and time. The patient demonstrated appropriate judgement and insight. Progress Progress Note 1149: Dr. Sage paged. 1208: Patient admitted by TERA Ledbetter. Results/Orders Reviewed/noted all lab results: Yes Results/Orders Orders - DAVID ZHOU MD Chest,Single View (03/01/25 11:11) Monitor (03/01/25 11:11) Saline Lock (03/01/25 11:11) Oxygen (03/01/25 11:11) Electrocardiogram (03/01/25 11:11) To Dena (03/01/25 11:49) Completed Orders - DAVID ZHOU MD Chest,Single View (03/01/25 11:11) Cbc/Diff (03/01/25 11:11) BMP (03/01/25 11:11) PBNP (03/01/25 11:11) Electrocardiogram (03/01/25 11:11) Hs Troponin I W Calculations (03/01/25 11:11) Hs Troponin I W Calculations (03/01/25 13:11) Hs Troponin I W Calculations (03/01/25 14:11) Normal Saline 1000ml (Sodium Chloride 10 (03/01/25 11:30) Normal Saline 1000ml (Sodium Chloride 10 (03/01/25 11:30) Liver Panel (03/01/25 11:22) MG (03/01/25 11:22) Glucagon, Human Recombinant (Glucagen In (03/01/25 11:55) Vital Signs 03/01/25 03/01/25 03/01/25 11:13 11:30 12:00 Temp 97.8 97.8 Pulse 41 22 Resp 16 18 14 B/P (MAP) 127/62 129/52 (77) Pulse Ox 95 99 O2 Flow Rate 0 0 Laboratory Tests Test 03/01/25 11:22 White Blood Count 7.7 Red Blood Count 3.55 L Hemoglobin 11.2 L Hematocrit 32.8 L Mean Corpuscular Volume 92.5 Mean Corpuscular Hemoglobin 31.7 H Mean Corpuscular Hemoglobin Concent 34.2 Red Cell Distribution Width 14.7 H Platelet Count 151 Mean Platelet Volume 8.4 Neutrophils (%) (Auto) 71.9 Lymphocytes (%) (Auto) 16.2 L Monocytes (%) (Auto) 8.1 Eosinophils (%) (Auto) 3.0 Basophils (%) (Auto) 0.8 Neutrophils # (Auto) 5.6 Lymphocytes # (Auto) 1.3 Monocytes # (Auto) 0.6 Eosinophils # (Auto) 0.2 Basophils # (Auto) 0.1 CBC Comment Sodium Level 144 Potassium Level 2.8 *L Chloride Level 111 H Carbon Dioxide Level 22.6 L Anion Gap 10 Blood Urea Nitrogen 14 Creatinine 1.37 H Estimated GFR/1.73 m2 50 BUN/Creatinine Ratio 10.2 Glucose Level 139 H Calcium Level 7.8 L Magnesium Level 1.7 Total Bilirubin 0.6 Direct Bilirubin 0.2 Aspartate Amino Transf (AST/SGOT) 25 Alanine Aminotransferase (ALT/SGPT) 19 Alkaline Phosphatase 51 Troponin I High Sensitivity 30 Pro-B-Type Natriuretic Peptide 2077 H Total Protein 5.4 L Albumin 2.3 L Globulin 3.1 Albumin/Globulin Ratio 0.7 L Chemistry Comments Re-Evaluation Re-Evaluation : Re-Evaluation: Improved Progress Patient was seen and examined. Patient is given reassurance. Patient has a syncopal episode and some bruising to his eye from prior fall. Patient had some concerned about possible seizure. Tele neurology was consulted recommended MRI further testing. Because the patient's bradycardia was in the 30s the patient received glucagon as well as some fluid hydration. Heart rate improved to the 50s. After laboratory work was obtained and no acute myocardial infarction was found patient did have some electrolyte abnormalities with a potassium of 2.8. Patient's magnesium was 1.7. Some slight acidosis with a CO2 of 22 creatinine 1.37 proBNP 5.4 with negative troponins. Patient received magnesium potassium and then was admitted to the hospitalist service for further workup and care for possible pacemaker placement if the patient continues to have significant bradycardia after the electrolytes have been resolved. Patient appears comfortable. There was some anemia with a hemoglobin of 11 and hematocrit 32 but normal WBCs suggesting no infectious etiologies. Continuous monitor car operator interpretation shows sinus bradycardia heart rate 20s to 40s, abnormal, my interpretation this is a irregular rhythm AFib Pulse oximetry monitor interpretation shows normal oxygenation at 99% room air, normal, my interpretation. EKG/XRAY/CT/US/VASC/MRI EKG : Additional Comment Test Date: 2025-03-01 Test Time: 11:13:57 Pat Name: KAMALJIT KHAN Department: EMERGENCY ROOM Room: ED 3 Gender: M Die Operator: : 1945 Requested By: DAVID ZHOU Order Number: [id number] Reading MD: Dr. David Zhou Measurements Intervals [place] Rate: 36 P: 0 [place]: 0 QRS: 56 QRSD: 130 T: 262 QT: 531 QTc: 411 Interpretive Statements Atrial fibrillation Nonspecific intraventricular conduction delay Nonspecific repol abnormality, diffuse leads Electronically Signed On 03-01-2025 14:56:[address] David Zhou (interpreted by myself) Chest X-Ray : Additional Comments EXAM: DI CHEST,SINGLE VIEW HISTORY: CP COMPARISON: DI CHEST,SINGLE VIEW on DOS: 07/17/24 TECHNIQUE: Portable upright AP view of the chest was performed. FINDINGS: No pneumothorax, new infiltrates, or pulmonary edema. There is stable left lung base scarring. The heart enlarged. Postoperative changes of median sternotomy are re-identified. Probable moderate to large hiatal hernia. There are multiple old left rib fractures. IMPRESSION: 1. Left lung base scarring without evidence of acute intrathoracic process. 2. Cardiomegaly and postoperative changes of the heart. Reviewed by myself (Dr. Zhou) Heart Score: Heart Score Response (Comments) Value History Slightly Suspicious 0 EKG Repolarization Disturb 1 Age >65 2 Risk Factors 1 or 2 risk factors 1 Troponin Normal limit 0 Total 4 Medical Decision Making Additional info obtained from: old records Differential Dx:Considerations: Include: anemia, CVA, dehydration, dysrhythmia, electrolyte disorder, encephalopathy, hypoglycemia, hypovolemia, labyrinthitis, Meniere's disease, myocardial infarction, pulmonary embolus, TIA, vasovagal, vertigo central, other Departure Time of Disposition: 11:49 Disposition: 09 ADMITTED INPATIENT Admitted to Inpatient Unit: yes, to hospitalist Admission Level of Care: PCU with Tele Impression: Primary Impression: Bradycardia Additional Impressions: Hypokalemia Syncope Qualified Codes: R55 - Syncope and collapse Condition: Guarded Education Educated: Patient, Family Educated regarding: diagnosis Signature Scribe Signature: Scribed for David Zhou MD by Soheila Shaw . 03/01/25 11:38 Attestation: The note accurately reflects work and decisions made by me.David Zhou MD 03/01/25 23:16 DAVID ZHOU MD Mar 01, 2025 11:36 SOHEILA TOLBERT Mar 01, 2025 11:43
[2025-03-01 11:56] LABS: ALBUMIN 2.3 G/DL (3.4-5.0); ANION GAP 10 (8-16); BLOOD UREA NITROGEN 14 MG/DL (7-18); BUN/CREATININE RATIO 10.2 (10.0-20.0); CALCIUM 7.8 MG/DL (8.5-10.1); CHLORIDE 111 MMOL/L (99-107); CREATININE 1.37 MG/DL (0.60-1.10); GLUCOSE 139 MG/DL (70-104); PRO BRAIN NATRIURETIC PEPTIDE 2077 PG/ML (0-450); SODIUM 144 MMOL/L (135-145); TOTAL CARBON DIOXIDE 22.6 MMOL/L (24-32); eCRCL 48 ML/MIN; eGFR 50 ML/MIN
[2025-03-01] MEDS ORDERED: magnesium hydroxide 30ml (MOM) UD suspension PO PRN (12:05)
[2025-03-01] MEDS ORDERED: potassium Cl 40MEQ/1/2NS 520ml 520 ML IV PRN (12:05)
[2025-03-01] MEDS ORDERED: ondansetron 4mg rapidly disintigrating tab PO PRN (12:05)
[2025-03-01] MEDS ORDERED: magnesium sulf-water 2g/50mL 50 ML IV PRN (12:05)
[2025-03-01] MEDS ORDERED: magnesium sulf-water 4G/100mL 100 ML IV PRN (12:05)
[2025-03-01] MEDS ORDERED: acetaminophen 325mg tablet PO PRN ×2 (12:05)
[2025-03-01] MEDS ORDERED: magnesium Cl slow-release 64mg tablet PO PRN (12:05)
[2025-03-01] MEDS ORDERED: mag hydrox/Alum hydrox/simeth 30ml oral suspension PO PRN (12:05)
[2025-03-01] MEDS ORDERED: ondansetron/PF 4mg/2ml inj IV PRN (12:05)
[2025-03-01] MEDS ORDERED: potassium Cl 20 mEq SR tablet PO PRN (12:05)
[2025-03-01 12:09] LABS: POTASSIUM 2.8 MMOL/L (3.5-5.1)
[2025-03-01] MEDS: normal saline 1000ml 1,000 ML IV ONE (12:16)
[2025-03-01] MEDS: normal saline 1000ML IV soln IVB ONE (12:16)
[2025-03-01] MEDS: glucagon, human recombinant 1mg kit IM ONE (12:17)
[2025-03-01 12:24] LABS: ALANINE AMINOTRANSFERASE 19 U/L (12-78); ALBUMIN/GLOBULIN RATIO 0.7 (1.1-1.5); ALKALINE PHOSPHATASE 51 IU/L (46-116); ASPARTATE AMINO TRANSFERASE 25 U/L (10-37); BILIRUBIN,DIRECT 0.2 MG/DL (0-0.3); BILIRUBIN,TOTAL 0.6 MG/DL (0.1-1.0); MAGNESIUM 1.7 MG/DL (1.5-2.4); TOTAL PROTEIN 5.4 G/DL (6.4-8.2)
[2025-03-01] MEDS: potassium Cl 20 mEq SR tablet PO ONE (12:41)
[2025-03-01] MEDS: potassium CL 10mEq/100ml bag 100 ML IV ONE (12:41)
[2025-03-01] MEDS: magnesium sulf-water 2g/50mL 50 ML IV ONE (12:42)
[2025-03-01] MEDS ORDERED: glucagon, human recombinant 1mg kit SUBCUT PRN (15:05)
[2025-03-01] MEDS ORDERED: DEXTROSE 15 GM of carb/4 tabs (each vial/BOTTLE has 4 tablets) PO PRN ×2 (15:05)
[2025-03-01] MEDS ORDERED: dextrose 50%-water 50ml dispensing syringe IV PRN ×2 (15:05)
--- NOTE | 2025-03-01 15:06 | HISTORY AND PHYSICAL ---
History & Physical Providers to CC ~ History of Present Illness Reason for Admit\Complaint: bradycardia, syncope, hypokalemia History of Present Illness Ramon Pugh is a 80-year-old male with a past medical history of CAD s/p CABG, hypertension, IDDM, atrial fibrillation who was brought to the ED via EMS after a syncopal episode while sitting on the toilet. His spouse at bedside reported that he was unconscious for approximately 5 minutes. Patient does not recall syncopal episode. Patient denies chest pain, shortness of breath, palpitations, abdominal pain, lightheadedness, dizziness, fever, chills, dysuria, n/v/d. Patient takes atenolol at home which he did not take today. Upon EMS arrival, patient's heart rate was found to be in 40s. His adult remedial education instructor is Dr. Sage. Patient is to be admitted for further workups and treatment. I discussed Advanced Care Planning measures with the patient and his spouse at bedside. Patient and spouse at bedside have decided on a Limited code status with No chest compression but opts in for intubation/cardioversion/defibrillation, and pacemaker. Allergies: Coded Allergies: propoxyphene (Verified Allergy, Unknown, 07/17/24) Home Medications Home Medications Active Reported Lisinopril* (Lisinopril) 40 Mg Tablet 1 Tab PO QAM Levothyroxine Sodium 75 Mcg Tablet 1 Tab PO QAM Atorvastatin Calcium 20 Mg Tablet 1 Tab PO DAILY Metformin HCl 1,000 Mg Tablet 1 Tab PO Q12H Pradaxa (Dabigatran Etexilate Mesylate) 75 Mg Capsule 75 Mg PO BID Plavix (Clopidogrel Bisulfate) 75 Mg Tablet 75 Mg PO DAILY Do not stop medication unless instructed by prescriber. Allopurinol 300 Mg Tablet 1 Tab PO DAILY Aspir 81 (Aspirin) 81 Mg Tablet.dr 1 Tab PO DAILY Colchicine 0.6 Mg Tablet 1 Tab PO DAILY Spiriva Respimat (Tiotropium [place]) 4 Gm Mist.inhal 2.5 Mcg INH DAILY Lantus (Insulin Glargine,Hum.rec.anlog) 100 Unit/1 Ml Vial 14 Unit SQ HS Isosorbide Mononitrate Er (Isosorbide Mononitrate) 30 Mg Tab.er.24h 1 Tab PO DAILY Atenolol 50 Mg Tablet 1 Tab PO DAILY Past Medical History Past Medical History CAD s/p CABG COPD IDDM Past Surgical History Surgical History Comment CABG (2003) Past Social History Social History Comment Alcohol: Denies Tobacco: Denies Illicit drug use: Denies Living situation: Lives at home with spouse ROS ROS Other than positives in HPI, all 14 review of systems are negative Exam Vitals: Vital Signs Date Time Temp Pulse Resp B/P (MAP) Pulse Ox O2 Delivery O2 Flow Rate FiO2 03/01/25 14:46 97.8 41 15 140/55 (83) 97 0 General: Generalized weakness, fatigue, A&Ox 2, NAD HEENT: Normocephalic, PERRLA Neck: Supple, trachea midline, no JVD Chest: Clear to auscultation bilaterally Cardiovascular: IRIR, Bradycardic Abdomen: Soft and nontender Extremities: No cyanosis/clubbing/or edema Central Nervous System: CN II-XII intact, no focal deficits Musculoskeletal: No paraspinal muscle tenderness, no muscle spasm Skin: Warm and intact Diagnostic Data Last Recorded Lab Results: 03/01/25 1122 03/01/25 1122 Additional Plan # Syncope # Bradycardia -EKG afib at 36bpm, last home atenolol dose 02/28/25; atenolol held, transcutaneous pacer on; tele afib in 30s-40s today -consulted his adult remedial education instructor Dr. Sage; Attempts made to consult Dr. Sage however unable to get ahold, hence consulted on-call adult remedial education instructor Dr. Adrien Cristobal who recommends awaiting 48 hour washout before determining if pacemaker is required. # Atrial fibrillation (adult remedial education instructor Dr. Sage) -Eliquis, hold home atenolol # Hypokalemia -replace K/Mg per protocol # CAD s/p CABG (2003) # IDDM # HLD # HTN -prn hydralazine, hyper/hypoglycemic protocol, Lantus, Plavix, high-intensity statin to keep LDL<55 -follow A1c, lipid panel DVT/VTE Prophylaxis: Маринаqulibrado Code Status: DNR I spent a total of 35 minutes discussing Advanced Care Planning measures with the patient and his spouse at bedside. Advance care planning: Discussed with patient the importance of advance care planning in case of emergent situation. We discussed various resuscitative measures/ ACP with the patient at the time of admission. Patient and his spouse voiced understanding and patient and spouse have decided on a Limited code status with No chest compression but opts in for intubation/cardioversion/defibrillation, and pacemaker. Date of Service: Mar 01, 2025 Billing Provider: CAIT LUNDY Common Visit Codes: 18702-[id number] INP/OBS CARE (HIGH) Secondary Visit Codes: [id number] CARE PLAN 30 MINUTES CAIT LUNDY Mar 01, 2025 15:06
[2025-03-01] MEDS: normal saline 1000ml 1,000 ML IV SCH (15:15)
[2025-03-01 15:36] VITALS: PULSE 42; RESP 22; TEMP 97.6; O2SAT 97
[2025-03-01] MEDS: INSULIN LISPRO 100 UNIT/ML INSULN.PEN MULTI-DOSE SQ SCH (17:00)
[2025-03-01 18:00] VITALS: BP 145/70; PULSE 40; RESP 12; TEMP 97.3; O2SAT 98
--- NOTE | 2025-03-01 18:21 | CONSULTATION REPORT ---
History of Present Illness Providers to CC CC: KATH MOORE MD ~ Reason for Admit\Admit Dx: Cardiology consultation Refering MD: [facility] History of Present Illness This is an 80-year-old male who presented secondary to syncope. Past medical history is significant for atrial fibrillation on atenolol, coronary artery disease with history of CABG and multiple PCIs, hypertension, type 2 diabetes, COPD, tobacco use. He had a syncopal episode while sitting on the toilet. Reports that he was out for about 5 minutes. When EMS arrived he was found to have heart rate in the 40s. Cardiology consultation was requested secondary to atrial fibrillation with slow ventricular response with syncope. He is followed by Dr. Galo as an outpatient and cardiology consultation with the foundation drill operator medical assembly Dr. Cristobal. Allergies: Coded Allergies: propoxyphene (Verified Allergy, Unknown, 07/17/24) Home Medications Home Medications Active Reported Lisinopril* (Lisinopril) 40 Mg Tablet 1 Tab PO QAM Levothyroxine Sodium 75 Mcg Tablet 1 Tab PO QAM Atorvastatin Calcium 20 Mg Tablet 1 Tab PO DAILY Metformin HCl 1,000 Mg Tablet 1 Tab PO Q12H Pradaxa (Dabigatran Etexilate Mesylate) 75 Mg Capsule 75 Mg PO BID Plavix (Clopidogrel Bisulfate) 75 Mg Tablet 75 Mg PO DAILY Do not stop medication unless instructed by prescriber. Allopurinol 300 Mg Tablet 1 Tab PO DAILY Aspir 81 (Aspirin) 81 Mg Tablet.dr 1 Tab PO DAILY Colchicine 0.6 Mg Tablet 1 Tab PO DAILY Spiriva Respimat (Tiotropium [place]) 4 Gm Mist.inhal 2.5 Mcg INH DAILY Lantus (Insulin Glargine,Hum.rec.anlog) 100 Unit/1 Ml Vial 14 Unit SQ HS Isosorbide Mononitrate Er (Isosorbide Mononitrate) 30 Mg Tab.er.24h 1 Tab PO DAILY Atenolol 50 Mg Tablet 1 Tab PO DAILY Past Medical History Medical History Comment Coronary artery disease with prior CABG and PCI Hypertension Diabetes type 2 Atrial fibrillation COPD Hypothyroidism Past Surgical History Surgical History Comment CABG and multiple angiograms in the past Past Social History Social History Comment Continues to smoke but down to one cigar per day. Denies alcohol or recreational drug use. Physical Exam Last Vital Signs Recorded: RN Vital Signs have been reviewed: Yes, Temperature: 97.6, Source: Oral, Heart Rate: 42, Respiratory Rate: 22, BP: 140/55, Pulse Oximetry: 97, Weight: 80.910 Physical Exam General: Awake, alert, oriented to baseline. Speaking in full sentences. Neck: Supple. Normal range of motion. No JVD Respiratory: Lungs are clear to auscultation bilaterally. No respiratory distress. Chest: Normal shape and size. No accessory muscle use. Cardiovascular: Irregular rhythm. Bradycardic. Variable S1-S2. No murmur, gallop, rub. Gastrointestinal: Abdomen is soft. Nontender to palpation. Bowel sounds present. Extremities: No lower extremity edema, cyanosis or clubbing. Neurologic: Nonfocal Psychiatric: Normal mood and affect. Skin: Normal color. Warm and dry. Review of Systems ROS Patient denies symptoms of dizziness, lightheadedness. Denies chest pain or pressure. Denies shortness or breath. Denies recent illness or fevers or chills. He reports he feels like his normal self. Results EKG EKG Atrial fibrillation with slow ventricular response Diagram Lab Result Diagram: 03/01/25 1122 03/01/25 1122 Assessment/Plan Additional Plan This is an 80-year-old male who presented after a syncopal episode. The following is his problem list: Syncope Atrial fibrillation with slow ventricular response --hold atenolol. We will require 48 hour washout before determining if pacemaker is required. --monitor on telemetry Atrial fibrillation Chads Vasc five On Pradaxa 75 mg b.i.d. as an outpatient History of coronary artery disease Last coronary angiogram was completed October 08, 2024. Did reveals 70% InStent stenosis of the mid left circumflex which is being managed medically. --continue Plavix. Not on aspirin given oral anticoagulation therapy. --hold beta-ritu as above --recommend high-intensity statin to keep goal LDL less than 55 Hypokalemia --recommend replacement per protocol Tobacco use disorder --encouraged to quit Other comorbidities: Insulin-dependent diabetes Hypertension Hyperlipidemia Case discussed with Dr. Maria Luisa Cristobal who is in agreement with the above plan. Supervising MD Supervising Physician: SCOTTY España NP Mar 01, 2025 18:21
[2025-03-01 18:57] LABS: MAGNESIUM 2.3 MG/DL (1.5-2.4); POTASSIUM 3.7 MMOL/L (3.5-5.1)
[2025-03-01] MEDS: K and/or MAG REPLACEMENT MC SCH (19:42)
[2025-03-01 20:00] VITALS: RESP 12; O2SAT 98
[2025-03-01] MEDS: insulin glargine (Lantus) pen - multi-dose SQ SCH (21:00)
[2025-03-01] MEDS: atorvastatin 20mg tablet PO SCH (21:57)
[2025-03-01] MEDS: clopidogrel 75mg tablet PO ONE (21:57)
[2025-03-01] MEDS: apixaban 5mg tablet PO SCH (21:58)
[2025-03-01 22:00] VITALS: BP 140/70; PULSE 50; RESP 17; TEMP 97.3; O2SAT 96
[2025-03-01] MEDS: docusate sod 100mg capsule PO SCH (22:03)
[2025-03-02] VITALS (8 sets, daily range): BP systolic 124–149; BP diastolic 67–84; PULSE 50–67; RESP 17–25; TEMP 97–97.7; O2SAT 90–97
[2025-03-02] MEDS: OLANZapine **IM** 10 mg inj. IM ONE (01:27)
[2025-03-02 05:52] LABS: BASOPHILS # (AUTO) 0.1 X10'3 (0-0.2); BASOPHILS % (AUTO) 0.6 % (0-1); EOSINOPHILS # (AUTO) 0.2 X10'3 (0-0.9); EOSINOPHILS % (AUTO) 1.6 % (0-6); HEMATOCRIT 41.7 % (42.0-52.0); HEMOGLOBIN 14.2 g/dl (14.0-17.9); LYMPHOCYTES # (AUTO) 1.4 X10'3 (1.1-4.8); LYMPHOCYTES % (AUTO) 12.3 % (21-51); MEAN CORPUSCULAR HEMOGLOBIN 31.5 PG (27.0-31.0); MEAN CORPUSCULAR HGB CONC 34.2 g/dL (33.0-36.5); MEAN CORPUSCULAR VOLUME 92.1 FL (78-98); MEAN PLATELET VOLUME 8.8 FL (7.4-10.4); MONOCYTES # (AUTO) 0.8 X10'3 (0-0.9); MONOCYTES % (AUTO) 7.1 % (2-12); NEUTROPHILS # (AUTO) 8.6 X10'3 (1.8-7.7); NEUTROPHILS % (AUTO) 78.4 % (42-75); PLATELET COUNT 189 X10'3 (140-440); RED BLOOD COUNT 4.52 X10'6 (4.70-6.10); RED CELL DISTRIBUTION WIDTH 14.6 % (11.5-14.5)
[2025-03-02 06:12] LABS: ALANINE AMINOTRANSFERASE 23 U/L (12-78); ALBUMIN 3.3 G/DL (3.4-5.0); ALBUMIN/GLOBULIN RATIO 0.8 (1.1-1.5); ALKALINE PHOSPHATASE 73 IU/L (46-116); ANION GAP 12 (8-16); ASPARTATE AMINO TRANSFERASE 29 U/L (10-37); BILIRUBIN,TOTAL 1.2 MG/DL (0.1-1.0); BLOOD UREA NITROGEN 12 MG/DL (7-18); BUN/CREATININE RATIO 8.3 (10.0-20.0); CALCIUM 8.9 MG/DL (8.5-10.1); CHLORIDE 103 MMOL/L (99-107); CHOL/HDL RATIO 2.5 (0.00-4.99); CHOLESTEROL 86 MG/DL (0-200); CREATININE 1.45 MG/DL (0.60-1.10); GLUCOSE 132 MG/DL (70-104); HDL CHOLESTEROL 34 MG/DL (35-60); LDL CHOLESTEROL 35 MG/DL (50-100); MAGNESIUM 2.2 MG/DL (1.5-2.4); POTASSIUM 3.4 MMOL/L (3.5-5.1); SODIUM 139 MMOL/L (135-145); TOTAL CARBON DIOXIDE 23.8 MMOL/L (24-32); TOTAL PROTEIN 7.4 G/DL (6.4-8.2); TRIGLYCERIDES 139 MG/DL (20-135); eCRCL 46 ML/MIN; eGFR 47 ML/MIN
[2025-03-02 06:43] LABS: HEMOGLOBIN A1C 6.6 % (4.5-6.2)
[2025-03-02] MEDS: clopidogrel 75mg tablet PO SCH (07:32)
[2025-03-02] MEDS: potassium Cl 20 mEq SR tablet PO PRN (07:32)
--- NOTE | 2025-03-02 12:52 | PROGRESS NOTE ---
Progress Note Cardiology Providers to CC ~ Subjective Subjective Patient more confused per . He has been monitored on telemetry. Remains atrial fibrillation. Heart rates 50s up to 80s at times. It has much improved. Objective Result Diagram: 03/02/25 0433 03/02/25 0453 Objective General: Awake, alert. Neck: Supple. Normal range of motion. No JVD Respiratory: Lungs are worse. No respiratory distress. Chest: Normal shape and size. No accessory muscle use. Cardiovascular: Irregular rhythm. Bradycardic. Variable S1-S2. No murmur, gallop, rub. Gastrointestinal: Abdomen is soft. Nontender to palpation. Bowel sounds present. Extremities: No lower extremity edema, cyanosis or clubbing. Neurologic: Nonfocal Psychiatric: Normal mood and affect. Skin: Normal color. Warm and dry. Problem\Assessment\Plan Additional Plan This is an 80-year-old male who presented after a syncopal episode. The following is his problem list: Syncope Atrial fibrillation with slow ventricular response --hold atenolol. --heart rate improved. We will need outpatient follow up with his primary manager talent, Dr. Galo Atrial fibrillation Chads Vasc five On Pradaxa 75 mg b.i.d. as an outpatient. History of coronary artery disease Last coronary angiogram was completed October 08, 2024. Did reveals 70% InStent stenosis of the mid left circumflex which is being managed medically. --continue Plavix. Not on aspirin given oral anticoagulation therapy. --hold beta-ritu as above --recommend high-intensity statin to keep goal LDL less than 55 Hypokalemia --recommend replacement per protocol Tobacco use disorder --encouraged to quit Other comorbidities: Insulin-dependent diabetes Hypertension Hyperlipidemia Case discussed with Dr. Maria Luisa Cristobal who is in agreement with the above plan. Cardiology condition is stable at this time. We will sign off. For any further cardiology needs please contact Dr. Cristobal directly. Supervising Physician: SCOTTY España NP Mar 02, 2025 12:52
[2025-03-02] MEDS: LidoCAINE 2% Topical Jelly 11mL syringe (UROJET) TOP ONE (13:46)
[2025-03-02 14:21] LABS: BILIRUBIN,URINE NEGATIVE (Neg); CLARITY,URINE CLEAR (Clear); COLOR,URINE YELLOW (Yellow); GLUCOSE, URINE NEGATIVE (Neg); KETONES,URINE NEGATIVE (Neg); LEUKOCYTE ESTERASE ,URINE SMALL (Neg); NITRITES, URINE POSITIVE (Neg); OCCULT BLOOD,URINE MODERATE (Neg); PH,URINE 6.5 (4.8-8.0); PROTEIN,URINE 30 mg/dl (Neg)
[2025-03-02 14:28] LABS: UA COLLECTION TYPE STRAIGHT CATH
[2025-03-02 14:33] LABS: BACTERIA,URINE 2+ /HPF (Neg); MUCUS STRANDS FEW /LPF (Neg); SQUAMOUS EPITHELIAL CELL,UR FEW /LPF (FEW); TRANSITIONAL EPI CELLS,URINE FEW /HPF
[2025-03-02] MEDS: CefTRIAXone/D5W-Rocephin 1gm 50 ML IV SCH (16:25)
--- NOTE | 2025-03-02 21:54 | PROGRESS NOTE ---
Daily Progress Note Providers to CC ~ Antibiotic Timeout Antibiotic Ordered?: Yes Subjective The patient's heart rate is improved today no more signs of bradycardia Objective Vital Signs Date Time Temp Pulse Resp B/P (MAP) Pulse Ox O2 Delivery O2 Flow Rate FiO2 03/02/25 18:30 57 03/02/25 18:00 97.2 21 136/73 (94) 90 Room Air 03/01/25 14:46 0 Result Diagram: 03/02/25 0433 03/02/25 0453 Gen. No acute distress alert and oriented 4 Lungs clear to ascultation bilaterally, no wheezes rales or rhonchi appreciated Heart normal sinus rhythm no murmurs rubs or clicks noted Abdomen soft nontender bowel sounds are normoactive Lower extremities no clubbing cyanosis, nor edema appreciated bilaterally Problem\Assessment\Plan Problems/Diagnosis: (1) Bradycardia # syncope Secondary to atrial fibrillation with slow ventricular response improve with holding atenolol Continue to monitor # atrial fibrillation Continue Pradaxa # CAD no signs of acute coronary syndrome On Plavix # hypokalemia On potassium replacement protocol # insulin-dependent diabetes mellitus Hemoglobin A1c 6.6 Continue hyper and hypoglycemic protocol # hypertension # hyperlipidemia Blood pressure is under acceptable control Continue lisinopril Continue atorvastatin # kidney disease- chronic versus acute Daily metabolic panel to monitor kidney function Disposition: Awaiting physical therapy evaluation Date of Service: Mar 02, 2025 Billing Provider: JOSE FRIED DO Common Visit Codes: [id number] INP/OBS CARE(HIGH) JOSE FRIED DO Mar 02, 2025 21:54
[2025-03-03] VITALS (9 sets, daily range): BP systolic 101–180; BP diastolic 55–88; PULSE 59–74; RESP 12–27; TEMP 97.2–97.9; O2SAT 92–97
[2025-03-03] MEDS: hydrALAZINE 20mg/ml inj. IV PRN (04:08)
[2025-03-03 05:41] LABS: BASOPHILS % (AUTO) 0.4 % (0-1); EOSINOPHILS # (AUTO) 0.1 X10'3 (0-0.9); EOSINOPHILS % (AUTO) 0.7 % (0-6); HEMATOCRIT 38.6 % (42.0-52.0); HEMOGLOBIN 13.2 g/dl (14.0-17.9); LYMPHOCYTES # (AUTO) 1.1 X10'3 (1.1-4.8); LYMPHOCYTES % (AUTO) 11.4 % (21-51); MEAN CORPUSCULAR HEMOGLOBIN 31.4 PG (27.0-31.0); MEAN CORPUSCULAR HGB CONC 34.1 g/dL (33.0-36.5); MEAN CORPUSCULAR VOLUME 92.1 FL (78-98); MONOCYTES # (AUTO) 0.7 X10'3 (0-0.9); MONOCYTES % (AUTO) 7.2 % (2-12); NEUTROPHILS # (AUTO) 7.7 X10'3 (1.8-7.7); NEUTROPHILS % (AUTO) 80.3 % (42-75); PLATELET COUNT 172 X10'3 (140-440); RED BLOOD COUNT 4.19 X10'6 (4.70-6.10); RED CELL DISTRIBUTION WIDTH 14.8 % (11.5-14.5); WHITE BLOOD COUNT 9.6 X10'3 (4.5-11.0)
[2025-03-03 05:50] LABS: ALANINE AMINOTRANSFERASE 18 U/L (12-78); ALBUMIN 3.2 G/DL (3.4-5.0); ALBUMIN/GLOBULIN RATIO 0.8 (1.1-1.5); ALKALINE PHOSPHATASE 68 IU/L (46-116); ANION GAP 11 (8-16); ASPARTATE AMINO TRANSFERASE 21 U/L (10-37); BILIRUBIN,TOTAL 1.2 MG/DL (0.1-1.0); BLOOD UREA NITROGEN 11 MG/DL (7-18); BUN/CREATININE RATIO 7.3 (10.0-20.0); CALCIUM 8.9 MG/DL (8.5-10.1); CHLORIDE 105 MMOL/L (99-107); GLUCOSE 165 MG/DL (70-104); MAGNESIUM 1.9 MG/DL (1.5-2.4); POTASSIUM 3.6 MMOL/L (3.5-5.1); SODIUM 140 MMOL/L (135-145); TOTAL CARBON DIOXIDE 24.5 MMOL/L (24-32); TOTAL PROTEIN 7.1 G/DL (6.4-8.2); eCRCL 44 ML/MIN; eGFR 45 ML/MIN
[2025-03-03] MEDS: levoTHYROXINE 75mcg tablet PO SCH (07:58)
[2025-03-03] MEDS: allopurinol 300 MG tablet PO SCH (07:59)
[2025-03-03] MEDS: amLODIPine 5mg tablet PO ONE (07:59)
[2025-03-03] MEDS: atorvastatin 20mg tablet PO SCH (07:59)
[2025-03-03] MEDS ORDERED: clopidogrel 75mg tablet PO SCH (08:00)
[2025-03-03] MEDS: lisinopril 20mg tablet PO SCH (08:00)
[2025-03-03] MEDS: isosorbide mononitrate 30mg tab.SR.24H PO SCH (08:00)
[2025-03-03] MEDS: aspirin 81mg, enteric-coated 1 TAB TABLET.DR PO SCH (08:00)
[2025-03-03] MEDS: colchicine 0.6mg tablet PO SCH (08:00)
[2025-03-03] MEDS ORDERED: INSULIN GLARGINE HUM REC ANLOG 14 UNIT SQ SCH (21:00)
--- NOTE | 2025-03-03 23:34 | PROGRESS NOTE ---
Daily Progress Note Providers to CC ~ Antibiotic Timeout Antibiotic Ordered?: Yes Subjective The patient was asleep when I evaluated him this afternoon however the patient's informs me that he recognized her today which was improved from the day previously- the patient's is pleased that he will be going to rehab Objective Vital Signs Date Time Temp Pulse Resp B/P (MAP) Pulse Ox O2 Delivery O2 Flow Rate FiO2 03/03/25 20:00 18 92 Room Air 03/03/25 18:30 55 03/03/25 15:00 97.2 101/59 (73) 03/01/25 14:46 0 Result Diagram: 03/03/25 0508 03/03/25 0508 Gen. No acute distress alert and oriented 4 Lungs clear to ascultation bilaterally, no wheezes rales or rhonchi appreciated Heart normal sinus rhythm no murmurs rubs or clicks noted Abdomen soft nontender bowel sounds are normoactive Lower extremities no clubbing cyanosis, nor edema appreciated bilaterally Problem\Assessment\Plan Problems/Diagnosis: (1) Bradycardia # syncope Secondary to atrial fibrillation with slow ventricular response improve with holding atenolol Continue to monitor 03/03 essentially resolved in the past 24 hours has only been one reading in the 50s # atrial fibrillation Continue Pradaxa # CAD no signs of acute coronary syndrome On Plavix # hypokalemia On potassium replacement protocol # insulin-dependent diabetes mellitus Hemoglobin A1c 6.6 Continue hyper and hypoglycemic protocol # hypertension # hyperlipidemia Blood pressure is under acceptable control Continue lisinopril Continue atorvastatin # kidney disease- chronic versus acute Daily metabolic panel to monitor kidney function # metabolic encephalopathy # UTI secondary to cystitis Improving with IV antibiotics awaiting urine culture results Disposition: Awaiting physical therapy evaluation Date of Service: Mar 03, 2025 Billing Provider: JOSE FRIED DO Common Visit Codes: [id number] INP/OBS CARE(HIGH) JOSE FRIED DO Mar 03, 2025 23:34
[2025-03-04 02:00] VITALS: BP 103/56; PULSE 63; RESP 26; TEMP 97.1; O2SAT 96
[2025-03-04 05:27] LABS: BASOPHILS # (AUTO) 0.1 X10'3 (0-0.2); BASOPHILS % (AUTO) 0.8 % (0-1); EOSINOPHILS # (AUTO) 0.2 X10'3 (0-0.9); EOSINOPHILS % (AUTO) 3.7 % (0-6); HEMATOCRIT 35.4 % (42.0-52.0); LYMPHOCYTES # (AUTO) 1.1 X10'3 (1.1-4.8); MEAN CORPUSCULAR HEMOGLOBIN 31.6 PG (27.0-31.0); MEAN CORPUSCULAR VOLUME 93.1 FL (78-98); MEAN PLATELET VOLUME 8.7 FL (7.4-10.4); MONOCYTES # (AUTO) 0.6 X10'3 (0-0.9); MONOCYTES % (AUTO) 8.8 % (2-12); NEUTROPHILS # (AUTO) 4.7 X10'3 (1.8-7.7); NEUTROPHILS % (AUTO) 69.7 % (42-75); PLATELET COUNT 159 X10'3 (140-440); RED CELL DISTRIBUTION WIDTH 15.1 % (11.5-14.5); WHITE BLOOD COUNT 6.7 X10'3 (4.5-11.0)
[2025-03-04 05:41] LABS: ALANINE AMINOTRANSFERASE 17 U/L (12-78); ALBUMIN 2.7 G/DL (3.4-5.0); ALBUMIN/GLOBULIN RATIO 0.8 (1.1-1.5); ALKALINE PHOSPHATASE 57 IU/L (46-116); ANION GAP 12 (8-16); ASPARTATE AMINO TRANSFERASE 22 U/L (10-37); BILIRUBIN,TOTAL 0.7 MG/DL (0.1-1.0); BLOOD UREA NITROGEN 17 MG/DL (7-18); BUN/CREATININE RATIO 12.8 (10.0-20.0); CALCIUM 8.3 MG/DL (8.5-10.1); CHLORIDE 109 MMOL/L (99-107); CREATININE 1.33 MG/DL (0.60-1.10); GLUCOSE 126 MG/DL (70-104); MAGNESIUM 1.8 MG/DL (1.5-2.4); POTASSIUM 3.2 MMOL/L (3.5-5.1); SODIUM 143 MMOL/L (135-145); TOTAL PROTEIN 6.2 G/DL (6.4-8.2); eCRCL 50 ML/MIN; eGFR 52 ML/MIN
[2025-03-04 06:00] VITALS: BP 156/64; PULSE 85; RESP 28; TEMP 97.4; O2SAT 96
[2025-03-04] MEDS: allopurinol 100mg tablet PO SCH (07:32)
[2025-03-04 08:00] VITALS: RESP 28; O2SAT 96
[2025-03-04] MEDS ORDERED: bisacodyl 10mg suppository rectal RC PRN (08:50)
[2025-03-04] MEDS: bisacodyl 10mg suppository rectal RC STA (09:06)
--- NOTE | 2025-03-04 10:42 | RADIOLOGY REPORT ---
Date: 03/04/2025 09:28 AM Examination: DI ABDOMEN,SINGLE VIEW(KUB) History: CONSTIPATION EVAL FECAL BURDEN LOAD Comparison: None TECHNIQUE: Frontal views of the abdomen was obtained. FINDINGS: Bowel gas pattern is unremarkable. Moderate stool burden. The lung bases are unremarkable. No acute osseous abnormality identified. IMPRESSION: Nonobstructive bowel gas pattern. Moderate stool burden.
[2025-03-04 11:00] VITALS: BP 137/60; PULSE 80; RESP 22; TEMP 98.1; O2SAT 96
--- NOTE | 2025-03-04 21:23 | DISCHARGE SUMMARY ---
Discharge Summary Providers to CC ~ Discharge Summary Admission Diagnosis: symptomatic bradycardia Hospital Course DATE OF ADMISSION: 03/01/2025 DATE OF DISCHARGE: 03/04/2025 Discharge Diagnosis\\Comment: Syncope secondary to bradycardia Atrial fibrillation CAD no signs of acute exacerbation Hypokalemia Insulin-dependent diabetes mellitus Hypertension Metabolic encephalopathy secondary to UTI/cystitis Chronic kidney disease Operations\\Procedures: None Consultants: Dr. Ro Cristobal picker machine operator's Complications: None Condition on DC: Stable Continued Medications: Allopurinol (Allopurinol) 300 Mg Tablet 1 TAB PO DAILY, TAB Aspirin (Aspir 81) 81 Mg Tablet.dr 1 TAB PO DAILY, TAB Atorvastatin Calcium (Atorvastatin Calcium) 20 Mg Tablet 1 TAB PO DAILY Clopidogrel Bisulfate (Plavix) 75 Mg Tablet 75 MG PO DAILY for ACUTE CORONARY SYNDROME/NSTEMI, TAB Do not stop medication unless instructed by prescriber. Colchicine (Colchicine) 0.6 Mg Tablet 1 TAB PO DAILY, TAB Dabigatran Etexilate Mesylate (Pradaxa) 75 Mg Capsule 75 MG PO BID, CAP Insulin Glargine,Hum.rec.anlog (Lantus) 100 Unit/1 Ml Vial 14 UNIT SQ HS, VIAL Isosorbide Mononitrate (Isosorbide Mononitrate Er) 30 Mg Tab.er.24h 1 TAB PO DAILY, TAB Levothyroxine Sodium (Levothyroxine Sodium) 75 Mcg Tablet 1 TAB PO QAM Lisinopril* (Lisinopril*) 40 Mg Tablet 1 TAB PO QAM Tiotropium [place] (Spiriva Respimat) 4 Gm Mist.inhal 2.5 MCG INH DAILY Discontinued Medications: Atenolol (Atenolol) 50 Mg Tablet 1 TAB PO DAILY, TAB Metformin HCl (Metformin HCl) 1,000 Mg Tablet 1 TAB PO Q12H, TAB Discharge Summary: The patient was admitted by [facility] Freddie Ledbetter with the following HPI:"Ramon Pugh is a 80-year-old male with a past medical history of CAD s/p CABG, hypertension, IDDM, atrial fibrillation who was brought to the ED via EMS after a syncopal episode while sitting on the toilet. His spouse at bedside reported that he was unconscious for approximately 5 minutes. Patient does not recall syncopal episode. Patient denies chest pain, shortness of breath, palpitations, abdominal pain, lightheadedness, dizziness, fever, chills, dysuria, n/v/d. Patient takes atenolol at home which he did not take today. Upon EMS arrival, patient's heart rate was found to be in 40s. His picker machine operator is Dr. Sage. Patient is to be admitted for further workups and treatment. I discussed Advanced Care Planning measures with the patient and his spouse at bedside. Patient and spouse at bedside have decided on a Limited code status with No chest compression but opts in for intubation/cardioversion/defibrillation, and pacemaker. " The patient was evaluated by Dr. Skyla Giordano cardiac team and recommended holding atenolol in his the patient continued to be bradycardic a permanent pacemaker may be warranted-however the patient was heart rate improved which was initially in the 20s to 40s and by the the patient was heart rate was mostly in the 60s the 70s occasionally in the 50s and on the morning of discharge the patient was heart rate was 85. The patient was initially encephalopathic secondary to UTI and received IV Rocephin during hospitalization Patient has insulin-dependent diabetes mellitus-blood sugars were under acc eptable control during hospitalization with the hyper and hypoglycemic protocol and Lantus night Patient was chronic atrial fibrillation remains on apixaban for DVT and stroke prophylaxis however beta-blockers are held The patient has chronic stage III kidney disease which was stable during hospitalization. The patient did not do so well with physical therapy whom recommended a rehab Gen. No acute distress alert and oriented 3 Lungs clear to ascultation bilaterally, no wheezes rales or rhonchi appreciated Heart normal sinus rhythm no murmurs rubs or clicks noted Abdomen soft nontender bowel sounds are normoactive Lower extremities no clubbing cyanosis, nor edema appreciated bilaterally The patient felt ready to be discharged and was medically cleared to be discharged to a rehab on 03/04/2025 The patient was seen and evaluated on day of discharge. Time spent on discharge 35 minutes *Problems/Diagnosis: (1) Bradycardia Status: Acute Total Time Spent on D/C: > 30 Minutes Date of Service: Mar 04, 2025 Billing Provider: JOSE FRIED DO Common Visit Codes: [id number] DISCH DAY >30min JOSE FRIED DO Mar 04, 2025 21:23
== END 2025-03-04 15:16 | DRG 640 ==
LOC: ER 11:07 → ED HOLD 12:08 → PCU 3S 15:10
PROVIDERS: ADMIT Nurse Practitioner Family; ATTEND Nurse Practitioner Family
DX: E87.6 Hypokalemia (principal); E43 Unspecified severe protein-calorie malnutrition; G93.41 Metabolic encephalopathy; N30.00 Acute cystitis without hematuria; I48.91 Unspecified atrial fibrillation; Z66 Do not resuscitate; F17.210 Nicotine dependence, cigarettes, uncomplicated; N18.30 Chronic kidney disease, stage 3 unspecified; E11.22 Type 2 diabetes mellitus with diabetic chronic kidney disease; E03.9 Hypothyroidism, unspecified; E78.5 Hyperlipidemia, unspecified; J44.9 Chronic obstructive pulmonary disease, unspecified; R00.1 Bradycardia, unspecified; I12.9 Hypertensive chronic kidney disease with stage 1 through stage 4 chronic kidney disease, or unspecified chronic kidney disease; I25.10 Atherosclerotic heart disease of native coronary artery without angina pectoris; T50.995A Adverse effect of other drugs, medicaments and biological substances, initial encounter; Z88.8 Allergy status to other drugs, medicaments and biological substances; Z79.82 Long term (current) use of aspirin; Z79.01 Long term (current) use of anticoagulants; Z79.899 Other long term (current) drug therapy; Z95.1 Presence of aortocoronary bypass graft; Z79.4 Long term (current) use of insulin; I25.2 Old myocardial infarction; Z98.61 Coronary angioplasty status; Z68.22 Body mass index [BMI] 22.0-22.9, adult
CPT/HCPCS: 36415; 71045; 74018; 80048; 80053; 80061; 80076; 81001; 82948; 83036; 83735; 83880; 84132; 84484; 85025; 87077; 87081; 87088; 87186; 93005; 96365; 96368; 96372; 97161; 97530; 99285; A6590; C1758; G0378; J0360; J0696; J1610; J1815; J3480; J3490; J7030; J7040